=== PATIENT | male | born 1990 | race Caucasian/White ===

== ENCOUNTER 2016-12-16 12:12 | Emergency (ER) | payer BC ==
--- OUTSIDE RECORDS SUMMARY | 2016-12-16 12:44 | XMS REPORT | Continuity of Care Document ---
:1990 Author Organization [facility] [place] [address] Care Team Providers Name Role Phone Unavailable Primary Care Provider Unavailable Source Comments This disclosure is being made pursuant to the [employer] program and maynot contain all information available regarding this patient.[facility] Active Allergies and Adverse Reactions Not on File Current Medications Be aware that medications may not be up to date as of this document. Alwaysverify current medications with the patient. Not on file Active Problems Not on file Social History Tobacco Use Types Packs/Day Years Used Date Never Assessed Plan of Care Health Maintenance Due Date Last Done Comments HPV Vaccine ([id number]) (1 of 3 - Male 3 Dose Series) 2002 Retired-Pertussis Vaccine Adult 2010 Retired-Tetanus Vaccine Adult 2010 Retired-INFLUENZA VACCINE 06/07/2015 Results from Last 3 Months Not on file
--- OUTSIDE RECORDS SUMMARY | 2016-12-16 12:44 | XMS REPORT | Continuity of Care Document ---
:1990 Author Organization [facility] ([facility]) Address [address] [place] [address] Phone [phone] Care Team Providers Name Role Phone Unavailable Primary Care Provider Unavailable Source Comments This disclosure is being made pursuant to the Care Everywhere program, applicable federal and state laws, and may not contain all informaitonavailable regarding this patient.[facility] ([facility]) Active Allergies and Adverse Reactions Not on File Current Medications Not on file Active Problems Not on file Social History Tobacco Use Types Packs/Day Years Used Date Never Assessed Plan of Care Health Maintenance Due Date Last Done Comments Hepatitis B Vaccine (1 of 3 - Primary Series) 1990 HPV Vaccine (1 of 3 - Male 3 Dose Series) 2002 Tdap Vaccine 2002 Lipid Disorder Screening 2009 MMR Vaccine 2009 Td Vaccine 2009 Varicella Vaccine (1 of 2 - Adult - No Evidence of 2009 Immunity) Influenza Vaccine: Seasonal (#1) 05/07/2016 Results from Last 3 Months Not on file
[2016-12-16 12:53] LABS: Hemoglobin 14.8 gm/dL (13.5-18.0); Mean Corpuscular Hemoglobin 31.4 pg (27-31); Mean Corpuscular Hgb Conc 35.2 g/dl (32-36); Mean Platelet Volume 12.1 fl (6.0-9.5); Neutrophil # 6.2 K/mm3 (1.3-6.0); Neutrophil % 57.4 % (42-75.0); Platelet Count 197 K/mm3 (150-450); Red Blood Count 4.72 M/mm3 (4.7-6.0); Red Cell Distribution Width 12.6 % (11.5-14.0); White Blood Count 10.8 K/mm3 (4.0-10.5)
--- NOTE | 2016-12-16 12:55 | ERNOTE ---
Chest Pain/Cardiac HPI Date of Service: 12/16/16 Chief Complaint: Chest Pain Time Seen by Provider: 12/16/16 12:28 Source: patient Exam Limitations: no limitations Immunizations: IMMUNIZATION HX Immunizations Up to Date Yes History of Influenza Vaccine Yes Allergies/Adverse Reactions: Allergies No Known Allergies Allergy (Unverified 12/16/16 12:24) Home Medications: HOME MEDICATIONS Ranitidine HCl [Zantac] 150 mg PO BID #60 tab 12/16/16 [Last Taken Unknown] Narrative: Pt. comes in with c/o R sided chest pain that radiates to his L side and L flank and R neck since yesterday morning. Pt. denies any SOB, recent illness, cough, congestion, NVD, diaphoresis, alleviating factors, aggravating factors, or prehospital treatment. Pt. states taht pain came on suddenly while he was sitting down at work and is unaware of any precipitating factors.Pt. states that pt. is a dull ache all of the time but worsens occasionally. Review of Systems - Review of Systems Constitutional: Present: no symptoms reported. Absent: recent illness, fever, chills, diaphoresis, weakness, fatigue, malaise EYE: Present: no symptoms reported ENT: Present: no symptoms reported. Absent: nose pain, nose congestion, nasal drainage, sore throat Respiratory: Present: no symptoms reported. Absent: shortness of breath, cough , wheezing Cardiology: Present: chest pain. Absent: palpitations, edema Gastrointestinal/Abdominal: Present: no symptoms reported. Absent: nausea, vomiting, diarrhea, abdominal pain Genitourinary: Present: no symptoms reported. Absent: frequency, decreased urinary output Musculoskeletal: Present: no symptoms reported. Absent: back pain, joint pain Skin: Present: no symptoms reported. Absent: rash, change in hair/nails Neurological: Present: no symptoms reported. Absent: headache, dizziness/light- headedness, numbness, tingling All Other Systems: All systems neg except as marked - Patient's Past Medical History Patient History - Medical: No pertinent hx Patient History - Cardiac/Respiratory: No pertinent hx Patient History - Cancer: No Hx of Cancer Patient History - Surgical Procedures: No surgical history - Social History Smoking Status: Current every day smoker Have you smoked in the past 12 months: Yes - Immunizations Immunizations Up to Date: Yes History of Influenza Vaccine: Yes Physical Exam - Physical Exam General Appearance: Present: wd/wn, alert, no apparent distress Eye Exam: Normal inspection: bilateral, PERRL: bilateral, EOMI: bilateral Ears, Nose, Throat: Present: normal ENT inspection, normal pharynx Neck: Present: normal inspection, nontender. Absent: lymphadenopathy (R), lymphadenopathy (L) Respiratory: Present: no respiratory distress, normal breath sounds, no accessory muscle use, chest nontender, lungs clear Cardiovascular/Chest: Present: regular rate, rhythm, no murmur, normal peripheral pulses Gastrointestinal/Abdominal: Present: normal bowel sounds, nontender, nondistended, soft, no organomegaly. Absent: Peacock sign Back Exam: Present: normal inspection, normal range of motion, no CVA tenderness , no vertebral tenderness Extremity Exam: Present: normal inspection, non-tender, normal range of motion, no edema Neurological Exam: Present: alert, oriented, normal mood/affect, no motor/ sensory deficits, machine boss II-XII nml as tested, normal cerebellar test Skin Exam: Present: normal color, warm/dry. Absent: pallor, skin rash ED Progress - Date and Time Seen: Date and Time: 12/16/16 14:43 Ruled out cardiac cause for chest pain feel that this is likely lipid intolerance and pt. needs to eat lowfat foods and follow up with PCP if he continues to have these symptoms as he may need hida scan or ERCP on nonemergent basis. 12/16/16 15:[address] Radha houston and he is in agreement with POC - Results and Orders Patient's Lab Results:: I have reviewed the patient's lab results. - Vital Signs Patient's Vital Signs:: I have reviewed the patient's vital signs. Vital Signs: Vital Signs 12/16/16 12/16/16 12:15 12:27 Temperature 36.3 C L Pulse Rate 88 81 Respiratory 14 Rate Blood Pressure 161/74 O2 Sat by Pulse 100 Oximetry - EKG EKG: NSR, LVH EKG read: Interp. by me EKG Comments: no acute - X-Ray X-Ray #1 X-Ray: chest Interpretation: Reviewed by me X-ray Comments: no consolidation, no pleural effusion - CT/Ultrasound CT/Ultrasound Narrative: US negative for gallstones or cholecystitis - Progress/Reassessment Chief Complaint: Chest Pain Departure - Departure Clinical Impression: RUQ abdominal pain GERD (gastroesophageal reflux disease) Qualifiers: Esophagitis presence: with esophagitis Qualified Code(s): K21.0 - Gastro- esophageal reflux disease with esophagitis Disposition: Home self-care Condition: Good Instructions: Heartburn, [id number], Low-Fat Diet for Pancreatitis or Gallbladder Conditions Additional Instructions: Please follow up with primary provider as planned as you may need further testing for gallbladder disease. Please eat low fat diet . Prescriptions: Ranitidine HCl [Zantac] 150 mg PO BID #60 tab
[2016-12-16 13:07] LABS: Prothrombin Time (Patient) 10.8 Seconds (9.4-11.4)
[2016-12-16 13:08] LABS: INR 1.04 INR (0.90-1.10); Partial Thrombolplastin Time 27.5 Seconds (24-32)
[2016-12-16 13:15] LABS: Troponin I Less than 0.017 ng/ml (0.00-0.10)
[2016-12-16 13:17] LABS: ALT 69 U/L (19-67); AST 27 U/L (0-48); Albumin * 3.7 gm/dl (3.4-5.0); Alkaline Phosphatase * 90 U/L (50-170); Anion Gap 13.4 mmol/L (6.8-13.8); BUN/Creatinine Ratio 14.4 (9.0-21.6); Bilirubin, Total 0.4 mg/dL (0.0-1.1); Blood Urea Nitrogen 13 mg/dL (6-23); Ca. Corrected For Albumin 8.5 mg/dL (8.4-10.2); Calcium * 8.6 mg/dL (7.9-10.9); Carbon Dioxide 27.4 mmol/L (24-32.6); Chloride 105 mmol/L (97-106); Glucose * 99 mg/dL (70-110); Potassium 3.8 mmol/L (3.4-4.6); Sodium 142 mmol/L (132-142); Total Protein 7.4 gm/dL (6.2-8.2)
[2016-12-16] MEDS ORDERED: SUCRALFATE 1 G/10 ML UDC PO ONE (13:32)
[2016-12-16] MEDS ORDERED: LIDOCAINE HCL 20 ML UDC PO ONE (13:32)
[2016-12-16] MEDS ORDERED: MAG HYDROX/ALUMINUM HYD/SIMETH 30 ML UDC PO ONE (13:32)
[2016-12-16 15:04] VITALS: BP 155/96
== END 2016-12-16 15:37 | disposition home or self-care (01) ==
LOC: ER 12:12
DX: R10.11 Right upper quadrant pain (principal); K21.0 Gastro-esophageal reflux disease with esophagitis; Z72.0 Tobacco use